=== PATIENT | female | born 1960 | race Two or more races ===

== ENCOUNTER 2017-09-21 03:41 | Emergency (ER) | payer MEDICAID ==
[~2017-09-21] VITALS: Ht 157.5 cm; Wt 90.7 kg
[2017-09-21] MEDS ORDERED: CRESTOR20 MG ORAL (03:55)
[2017-09-21] MEDS ORDERED: LABETALOL HCL200 MG ORAL (03:55)
[2017-09-21] MEDS ORDERED: ASPIRIN81 MG ORAL (03:55)
[2017-09-21 04:05] VITALS: BP 192/80
--- NOTE | 2017-09-21 04:07 | Emergency Room Report ---
History of Present Illness General Chief Complaint: Dizziness Source: Patient Present Illness HPI Is a 56-year-old female with history hypertension. She presents with chief complaint of dizziness and wean sensation in her right ear. Onset for last 3 days. Denies any fever chills denies any nausea vomiting. Worse during at night. She felt sitting in sensation in her right ear. She also complaining of right knee pain. There is some edema to it. She was walking 3 days ago and twisted it. She said she felt a crack/pop to the medial aspect. Worse with walking. Pain is 8/10. Allergies: Coded Allergies: No Known Allergies (Unverified , 09/21/17) Patient History Past Medical History: see triage record, old chart reviewed, HTN Past Surgical History: other Pertinent Family History: none Social History: Denies: smoking Now: No Immunizations: other Reviewed Nursing Documentation: PMH: Agreed, PSxH: Agreed Nursing Documentation-PMH Hx Cardiac Problems: Yes - HIGH CHOLESTEROL Hx Hypertension: Yes Hx Gastrointestinal Problems: Yes - GERD Review of Systems Eye: Denies: eye pain, blurred vision ENT: Reports: ear pain, Denies: nose congestion, throat swelling Respiratory: Denies: cough, shortness of breath Cardiovascular: Denies: chest pain, palpitations Gastrointestinal: Denies: abdominal pain, diarrhea, nausea, vomiting Musculoskeletal: Denies: back pain, joint pain Skin: Denies: rash Neurological: Reports: dizziness, Denies: headache, numbness Endocrine: Denies: increased thirst, increased urine Hematologic/Lymphatic: Denies: easy bruising All Other Systems: negative except mentioned in HPI Physical Exam Vital Signs Date Time Temp Pulse Resp B/P (MAP) Pulse Ox O2 Delivery O2 Flow Rate FiO2 09/21/17 03:46 98.1 76 18 192/80 100 Room Air vitals with high blood pressure Sp02 EP Interpretation: reviewed, normal General Appearance: well appearing, no apparent distress, alert Head: normocephalic, atraumatic Eyes: bilateral eye PERRL, bilateral eye EOMI ENT: hearing grossly normal, normal pharynx, other - Right TM with effusion and small air-fluid level Neck: full range of motion, supple, no meningismus Respiratory: chest non-tender, lungs clear, normal breath sounds Cardiovascular #1: regular rate, rhythm, no murmur Gastrointestinal: normal bowel sounds, non tender, no mass, no organomegaly, no bruit, non-distended Musculoskeletal: back normal, gait/station normal, normal range of motion, other - Right knee with mild tenderness medially. Mild edema. Full range of motion. No instability. Sensation normal. Psychiatric: mood/affect normal Skin: warm/dry Medical Decision Making Diagnostic Impression: Primary Impression: Dizziness Additional Impressions: Right otitis media with effusion Right knee sprain Qualified Codes: S83.411A - Sprain of medial collateral ligament of right knee , initial encounter Hypertension, essential ER Course Patient with right ear pain and dizziness. She has effusion. We'll discharge with antibiotics. No evidence of TIA or CVA. She is walking without any difficulty. She also has right knee pain from a sprain of the medial collateral ligament. No evidence of fracture or instability. We'll discharge home. Advised patient to take her blood pressure medication. No evidence of end organ damage. Last Vital Signs Date Time Temp Pulse Resp B/P (MAP) Pulse Ox O2 Delivery O2 Flow Rate FiO2 09/21/17 03:46 98.1 76 18 192/80 100 Room Air Status: improved Disposition: HOME, SELF-CARE Condition: Stable Scripts Meclizine Hcl* (MECLIZINE*) 25 Mg Tablet 25 MG ORAL THREE TIMES A DAY, #21 TAB Prov: ARON DASILVA M.D. 09/21/17 Ibuprofen* (MOTRIN*) 600 Mg Tablet 600 MG ORAL Q8H Y for For Pain, #30 TAB 0 Refills Prov: ARON DASILVA M.D. 09/21/17 Amoxicillin* (AMOXIL*) 500 Mg Capsule 500 MG ORAL THREE TIMES A DAY, #21 CAP Prov: ARON DASILVA M.D. 09/21/17 Additional Instructions: Followup with your DrFroilan in 7 days. Return if symptom worsen. ARON DASILVA M.D. Sep 21, 2017 04:07
[2017-09-21] MEDS ORDERED: IBUPROFEN600 MG ORAL (04:41)
[2017-09-21] MEDS ORDERED: AMOXICILLIN500 MG ORAL (04:41)
[2017-09-21] MEDS ORDERED: MECLIZINE HCL25 MG ORAL (04:41)
[2017-09-21] MEDS ORDERED: NORVASC10 MG ORAL (04:45)
[2017-09-21 05:19] VITALS: BP 184/94
--- NOTE | 2017-09-21 09:27 | Diagnostic Imaging Report ---
Indication: Right knee pain Technique: XRAY KNEE THREE VIEWS RIGHT Comparison: None Findings: There is no acute fracture or dislocation. There is degenerative spurring of the medial and patellofemoral compartments with mild to moderate medial compartment joint space narrowing. There is no joint effusion. Suprapatellar enthesophyte is seen. Impression: No acute osseous abnormality. Right knee osteoarthrosis.
== END 2017-09-21 05:19 | disposition home or self-care (01) ==
LOC: EMR 04:25
DX: R42 Dizziness and giddiness (principal); S83.91XA Sprain of unspecified site of right knee, initial encounter; Y93.01 Activity, walking, marching and hiking; X50.1XXA Overexertion from prolonged static or awkward postures, initial encounter; Y92.89 Other specified places as the place of occurrence of the external cause; H65.91 Unspecified nonsuppurative otitis media, right ear; I10 Essential (primary) hypertension; M17.11 Unilateral primary osteoarthritis, right knee; K21.9 Gastro-esophageal reflux disease without esophagitis
CPT/HCPCS: 99284